=== PATIENT | female | born 1945 | race Caucasian/White ===

== ENCOUNTER → 2021-09-26 14:40 | Outpatient (BNVA) | payer MEDICARE, SELFPAY | PROVIDERS: Visit Provider Podiatrist Foot & Ankle Surgery | DX: M20.21 Hallux rigidus, right foot (principal); L60.8 Other nail disorders; L60.3 Nail dystrophy; M21.611 Bunion of right foot; M21.612 Bunion of left foot | CPT/HCPCS: 73630 ==

== ENCOUNTER → 2022-08-21 13:32 | Outpatient (BNVA) | payer MEDICARE, SELFPAY | PROVIDERS: PCP Family Medicine; Visit Provider Surgery | DX: K52.9 Noninfective gastroenteritis and colitis, unspecified (principal); R10.9 Unspecified abdominal pain | CPT/HCPCS: 99203 ==

== ENCOUNTER 2022-09-08 09:11 | Day surgery (SDC) | payer MEDICARE, SELFPAY ==
[2022-09-05 12:48] VITALS: BMI 32.5
[2022-09-08 09:38] VITALS: BP 188/83; PULSE 71; RESP 18; TEMP 36.3; O2SAT 97
[2022-09-08] MEDS: sodium chloride 0.9% 1,000 ML 30 ML IV (09:47)
--- NOTE | 2022-09-08 09:59 | ANES.PREANE2 ---
Pre-Anesthetic Assessment Height/Weight: Height 1.57 m Weight 80.739 kg Temp Pulse Resp BP Pulse Ox O2 Del Method 97.4 F L 71 18 188/83 97 09/08/22 09:38 09/08/22 09:38 09/08/22 09:38 09/08/22 09:38 09/08/22 09:38 09/08/22 09:38 Operation Date: 09/08/22 10:30 Proposed Procedures p [id number] egd, [id number] colon R10.9,K52.9(Not Applicable) - DO huyen [place] Colonoscopy(Not Applicable) - Nakul Baeza DO Familial anesthetic complications: None Was Beta Jessica taken within 24 hours: Yes Was Clonidine taken within 24 hours: N/A Last intake: Intake Last Liquid Date 09/07/22 Last Liquid Time 22:00 Last Solid Date 09/06/22 Last Solid Time 18:00 Social Alcohol (2 glasses of wine and 2 oz of bourbon nightly) and No alcohol Exam alert, oriented x 3, clear to auscultation bilaterally and regular rate & rhythm Airway Mallampati: Class II Dentition: caps CV/HEM Hypertension Anesthetic Plan ASA status: 2 Anesthesia: MAC Risk of > 500 ml blood loss (7ml/kg in children): No Medications/Allergies Home Medications Medication Instructions Recorded Confirmed Last Taken Type Custom Molded Orthotics #1 ea 09/26/21 08/21/22 09/06/22 Rx carvedilol 6.25 mg tablet 6.25 mg PO BID 09/26/21 09/05/22 09/08/22 07:30 History hydralazine 50 mg tablet 50 mg PO BID 09/26/21 09/05/22 09/07/22 History acetaminophen 500 mg tablet 500 mg PO Q6H PRN Pain 08/21/22 09/05/22 09/06/22 History ascorbic acid (vitamin C) 1,000 mg 1 g PO DAILY 08/21/22 09/05/22 09/06/22 History capsule boron 6 mg tablet 6 mg PO DAILY 08/21/22 09/05/22 09/06/22 History cannabis 1 puff as directed PRN PRN Pain 08/21/22 09/05/22 09/06/22 History cholecalciferol (vitamin D3) 125 125 mcg PO DAILY 12/08/3109/05/22 09/06/22 History mcg (5,000 unit) capsule coenzyme Q10 200 mg/gram oral 1,500 mg PO DAILY 08/21/22 09/05/22 09/06/22 History powder (H2Q CoQ10) glucosamine HCl 1,500 mg tablet 1,500 mg PO DAILY 08/21/22 09/05/22 09/06/22 History magnesium gluconate 27.5 mg 27.5 mg PO BID 08/21/22 09/05/22 09/06/22 History magnesium (500 mg) tablet multivitamin 1 tab PO DAILY 08/21/22 09/05/22 09/06/22 History omega-3s 350 hm-ham-rqh-other 1 cap PO DAILY 08/21/22 09/05/22 09/06/22 History ikvod3h-frlg oil 600 mg capsule (Fish Oil) probiotic 1 tab PO DAILY 08/21/22 09/05/22 09/06/22 History turmeric 400 mg capsule 500 mg PO DAILY 08/21/22 09/05/22 09/06/22 History Allergies Allergy/AdvReac Type Severity Reaction Status Date / Time No Known Allergies Allergy Verified 09/05/22 12:41 Current Medications Generic Name Dose Route Start Last Admin Trade Name Freq PRN Reason Stop Dose Admin Sodium Chloride 1,000 mls @ 30 mls/hr 09/08/22 09:30 09/08/22 09:47 Sodium Chloride 0.9% IV 09/09/22 09:29 30 mls/hr .Q24H RAVINDER Administration PFSH Anesthesia Surgical History Hx of colonoscopy with polypectomy Hx of hysterectomy Family History Mother Leukemia Unknown Cancer cousin/aunt colon cancer Social History Smoking and tobacco status: never smoked Data Anesthesia Cardiac Studies: No Data to Display
--- NOTE | 2022-09-08 10:50 | W.PM.OPSUD ---
Surgery/Procedure H&P Update DATE OF PROCEDURE: September 08, 2022 DATE H&P PERFORMED: 08/21/22 PLANNED PROCEDURE: Operation Date: 09/08/22 10:30 Proposed Procedures p [id number] egd, [id number] colon R10.9,K52.9(Not Applicable) - DO huyen [place] Colonoscopy(Not Applicable) - Nakul Baeza DO
[2022-09-08 11:40] VITALS: BP 185/86; PULSE 64; RESP 12; TEMP 36.7; O2SAT 97
[2022-09-08 11:53] VITALS: BP 188/94; PULSE 60; RESP 18; O2SAT 95
--- NOTE | 2022-09-08 14:06 | ANE.PACU2 ---
Inpatient post-anesthesia follow up: Airway intact: Yes Vital signs: Temperature 98.1 F Pulse Rate 60 Respiratory Rate 18 Blood Pressure 188/94 Pulse Oximetry 95 Oxygen Delivery Me thod Room Air Oxygen Flow Rate Fraction of Inspir ed Oxygen Hydration adequate: Yes Nausea and vomiting: No Pain level: 1 Mental status: Baseline
== END 2022-09-08 12:32 | disposition home or self-care (01) ==
PROVIDERS: PCP Family Medicine; Visit Provider Surgery
PROC: 0DJ08ZZ Inspection of Upper Intestinal Tract, Via Natural or Artificial Opening Endoscopic (ICD-10-PCS; CPT 43235; principal; 2022-09-08 10:30)
PROC: 0DJD8ZZ Inspection of Lower Intestinal Tract, Via Natural or Artificial Opening Endoscopic (ICD-10-PCS; CPT 45378; 2022-09-08 10:30)
DX: R10.9 Unspecified abdominal pain (principal); K52.9 Noninfective gastroenteritis and colitis, unspecified; K57.30 Diverticulosis of large intestine without perforation or abscess without bleeding; K29.50 Unspecified chronic gastritis without bleeding; B96.81 Helicobacter pylori [H. pylori] as the cause of diseases classified elsewhere; D12.2 Benign neoplasm of ascending colon; D12.5 Benign neoplasm of sigmoid colon; D12.8 Benign neoplasm of rectum; I10 Essential (primary) hypertension
CPT/HCPCS: 43239; 45380; 45385; 82274; 83630; 87493; 87506; 88305; J2704; J7030

== ENCOUNTER → 2022-09-20 16:45 | Outpatient (BNVA) | payer MEDICARE, SELFPAY | PROVIDERS: PCP Family Medicine; Visit Provider Surgery | DX: Z09 Encounter for follow-up examination after completed treatment for conditions other than malignant neoplasm (principal); K52.9 Noninfective gastroenteritis and colitis, unspecified; K29.70 Gastritis, unspecified, without bleeding; B96.81 Helicobacter pylori [H. pylori] as the cause of diseases classified elsewhere | CPT/HCPCS: 99212 ==

== ENCOUNTER → 2022-11-01 16:22 | Outpatient (BNVA) | payer MEDICARE, SELFPAY | PROVIDERS: PCP Family Medicine; Visit Provider Surgery | DX: K59.00 Constipation, unspecified (principal); K64.9 Unspecified hemorrhoids | CPT/HCPCS: 99212 ==

== ENCOUNTER → 2025-03-06 08:15 | Outpatient (BNVA) | payer MEDICARE, SELFPAY | PROVIDERS: PCP Family Medicine; Visit Provider Nurse Practitioner Family | DX: D17.1 Benign lipomatous neoplasm of skin and subcutaneous tissue of trunk (principal); L73.8 Other specified follicular disorders; D22.39 Melanocytic nevi of other parts of face; L82.0 Inflamed seborrheic keratosis; L29.89 Other pruritus; R20.9 Unspecified disturbances of skin sensation; R20.8 Other disturbances of skin sensation; L53.8 Other specified erythematous conditions; L91.8 Other hypertrophic disorders of the skin; R23.8 Other skin changes; L57.0 Actinic keratosis | CPT/HCPCS: 17000; 17110; 99203 ==